=== PATIENT | female | born 1965 | race Caucasian/White ===

== ENCOUNTER 2023-03-07 07:06 | Outpatient (CLI) | payer BC, SELFPAY ==
--- NOTE | 2023-03-07 08:17 | W.ANESCHARGE ---
Anesthesia Charges Start Date/Time Anesthesia Start Date: 03/07/23 Anesthesia Start Time: 07:52 Stop Date/Time Anesthesia Stop Date: 03/07/23 Anesthesia Stop Time: 08:14
--- NOTE | 2023-03-07 08:24 | W.ANESCHARGE ---
Anesthesia Charges Start Date/Time Anesthesia Start Date: 03/07/23 Anesthesia Start Time: 07:52 Stop Date/Time Anesthesia Stop Date: 03/07/23 Anesthesia Stop Time: 08:14
== END 2023-03-07 07:07 | disposition home or self-care (01) ==
LOC: OP CLINIC 07:07
PROVIDERS: PCP Family Medicine; Visit Provider Internal Medicine
DX: Z12.11 Encounter for screening for malignant neoplasm of colon (principal); Z86.010 Personal history of colon polyps
CPT/HCPCS: 45378; 811; 812; J2704

== ENCOUNTER 2023-03-22 08:48 | Outpatient (CLI) | payer BC, SELFPAY | END 2023-03-22 08:49 | disposition home or self-care (01) | LOC: NFLDREF 03-25 09:25 | PROVIDERS: PCP Family Medicine; Referring Provider Family Medicine; Visit Provider Obstetrics & Gynecology | DX: Z00.00 Encounter for general adult medical examination without abnormal findings (principal); R53.83 Other fatigue; Z13.6 Encounter for screening for cardiovascular disorders; Z13.0 Encounter for screening for diseases of the blood and blood-forming organs and certain disorders involving the immune mechanism; Z13.29 Encounter for screening for other suspected endocrine disorder | CPT/HCPCS: 80053; 80061; 82306; 82607; 84443 ==

== ENCOUNTER 2023-04-16 14:54 | Outpatient (CLI) | payer BC, SELFPAY ==
--- NOTE | 2023-04-16 15:00 | CRLHL7_ITS ---
For Patients: As a result of the Century Cures Act, medical imaging exams and procedure reports are released immediately into your electronic medical record. You may view this report before your referring provider. If you have questions, please contact your health care provider. BILATERAL SCREENING MAMMOGRAM WITH COMPUTER-AIDED DETECTION AND TOMOSYNTHESIS TECHNIQUE: CC and MLO views were obtained. These mammographic images have been obtained using full-field digital technique. These mammographic images were interpreted with the benefit of computer-aided detection. Breast Tomosynthesis was used in this interpretation. COMPARISON FILM: 11/08/21, 10/03/20, 09/23/19. FINDINGS: There are scattered areas of fibroglandular density IMPRESSION: There is no radiographic evidence for malignancy. ASSESSMENT: BI-RADS Category 1: Negative RECOMMENDATION: Routine screening mammogram in 1 year. A lay language report of this examination will be provided to the patient. Rainer Matthew M.D. Diagnostic Radiologist [email or web address] KARLA/Dictated by: Rainer Matthew MD @ 04/17/2023 11:49:00 AM (Electronically Signed)
== END 2023-04-16 14:55 | disposition home or self-care (01) ==
LOC: MAMMO 14:54
PROVIDERS: PCP Family Medicine; Visit Provider Obstetrics & Gynecology
DX: Z12.31 Encounter for screening mammogram for malignant neoplasm of breast (principal)
CPT/HCPCS: 77063; 77067

== ENCOUNTER 2023-06-10 14:54 | Outpatient (CLI) | payer BC, SELFPAY | END 2023-06-10 14:55 | disposition home or self-care (01) | LOC: RAD 14:55 | PROVIDERS: PCP Family Medicine; Visit Provider Internal Medicine Cardiovascular Disease | DX: I47.19 Other supraventricular tachycardia (principal); I31.39 Other pericardial effusion (noninflammatory) | CPT/HCPCS: 93306 ==

== ENCOUNTER 2024-01-22 14:13 | Outpatient (CLI) | payer BC, SELFPAY ==
--- OUTSIDE RECORDS SUMMARY | 2024-01-22 14:17 | XMS_ITS | Clinical Summary ---
Author Organization [facility] Address [address] [address] Phone Care Team Providers Care Provider Enrollment Specialist Name Role Phone Unavailable Primary Care Provider Unavailabl e Allergies No known active allergies Medications Medication Sig Dispensed Refills Start Date End Date Status Cyanocobalamin (Vitamin B 12) 100 MCG Lozenge Take by mouth. Active vitamin D, cholecalciferol, 25 mcg (1000 Units) tablet Take 25 mcg by mouth one time a day. 1 unit of Vitamin D equals 0.025 mcg of Vitamin D Active benzonatate (Tessalon) 100 MG capsule Take 1 Capsule by mouth three times a day as needed for Cough. Swallow capsule whole (do not break or chew). 90 Capsule 07/07/2022 Active guaiFENesin - codeine (Robitussin AC) 100-10 MG/5ML syrup Take 5 mL by mouth four times a day as needed for Cough. 150 mL 07/07/2022 Active Social History Tobacco Use Types Packs/Day Years Used Date Smoking Tobacco: Never Smokeless Tobacco: Never Tobacco Cessation:Counseling Given: Not Answered Sex and Gender Information Value Date Recorded Sex Assigned at Not on file Gender Identity Not on file Sexual Orientation Not on file Job Start Date Occupation Industry Not on file Not on file Not on file Obstetrics History Last Filed Vital Signs Vital Sign Reading Time Taken Comments Blood Pressure 123/87 07/07/2022 9:10 AM EQUIP TECH Pulse 73 07/07/2022 9:10 AM EQUIP TECH Temperature 37.1 ??C (98.7 ??F) 07/07/2022 9:10 AM CS T Respiratory Rate 18 07/07/2022 9:10 AM EQUIP TECH Oxygen Saturation 98% 07/07/2022 9:10 AM EQUIP TECH Inhaled Oxygen Concentration - - Weight - - Height - - Body Mass Index - - Plan of Treatment Health Maintenance Due Date Last Done Comments CT Colonography 1963 Cervical Cancer Screening 1963 Cologuard 1963 Colonoscopy 1963 Colorectal Cancer Screening 1963 FIT/FOBT 1963 Last pap w/ HPV Testing 1963 Last pap w/o HPV Testing 1963 MAMMO,SCREEN 1963 Sigmoidoscopy 1963 PERTUSSIS (Standing Order) 1982 TETANUS (Standing Order) 1982 Shingrix (Zoster recombinant ) vaccine (Standing Order) (1 of 2) 2013 RSV Vaccination (60+ yrs) (Abrysvo/Arexvy) (1 - 1-dose 60+ series) 2023 Influenza Vaccine Seasonal (Standing Order) (#1) 2023 HPV Vaccine (Standing Order) Aged Out No longer eligible based on patient's age to complete this topic Hepatitis B Vaccine (Standin g Order) Aged Out No longer eligible b ased on patient's age to complete this topic Pneumococcal/PCV20 Vaccine: Pediatrics (2-5 yrs) and At-Risk Patients (6-64 yrs) (Standing Order) Aged Out No longer eligible b ased on patient's age to complete this topic
--- OUTSIDE RECORDS SUMMARY | 2024-01-22 14:17 | XMS_ITS | Clinical Summary ---
Author Organization [facility] Address [address] [address] Care Team Providers Care Ticket Sales Supervisor Name Role Phone Unavailable Primary Care Provider Unavailabl e Source Comments You are receiving this document as you are listed as the primary care provider,follow-up provider, or the patient has been referred to you for consultation.This is in compliance with the Medicare and[facility] Incentive Program,which states Providers who transition their patient to another setting of careor provider of care or refers their patient to another provider of care shouldprovide summary care record for each transition of care or referral. [employer] Allergies No known active allergies Medications Medication Sig Dispensed Refills Start Date End Date Status unknown medication Indications: PN: 06/17/2008 Active unknown medication Indications: PN: 06/17/2008 Active atovaquone-proguanil (MALARONE) 250-100 MG tabletIndications:En counter for counseling for travel Take 1 tab by mouth daily. Start 2 days before malarial mosquito exposure, daily while there and continue for 7 days after leaving. 20 Tablet 08/08/2022 Active Active Problems Problem Noted Date Diagnosed Date Varicella 06/17/2008 Overview: LW Onset: childhood ; Varicella Zoster Immunizations Name Administration Dates Next Due Chicken Pox - History of Illness 01/31/1973 Flu Vac (3+ yrs) 05/22/2017, 3,05/01/2012,2010 Flu Vac Preserv Free (3+yrs) 05/27/2008 Flublok (RIV4) 04/28/2019 Fluzone Qiv Multidose Vial 0 .25 (6-35 Mos) 04/24/2018,05/09/2017,05/23/2016 [id number] 08/09/2009 Hdcv - Rabies Vaccine 03/08/2014, 014,03/13/2013,2012,03/03/2013,02/27/2013 HepA Adult (19+ yrs) 08/08/2022,06/17/2006 HepB Adult (Engerix-B, 20+ y rs, 3 dose series) 06/17/2006 IG (Immune Globulin) 07/15/1997 IPV (Polio) 06/17/2006 Influenza (Flucelvax), Prese rv Free QIV 04/06/2022 Influenza IIV4 (Quadrivalent ) 0.5mL ([id number]) 03/24/2021,03/23/2020,04/29/2014 Influenza, Unspecified Formulation 05/27/2008 JE (IXIARO) 08/15/2022,08/08/2022 Moderna Bivalent 12+ 04/06/2022 Moderna Monovalent 12+ 11/07/2021,2020,11/02/2020,2020 Td 06/17/2003 Tdap 08/08/2022,05/01/2012 Typhoid (Typhim Vi, IM) 08/08/2022,06/27/2006 Typhoid (Vivotif, Oral) 06/17/2008 Typhoid, Unspecified Formulation 06/17/2008,05/31 Zoster RZV (Shingrix) 08/29/2019,07/10/2019 Social History Tobacco Use Types Packs/Day Years Used Date Smoking Tobacco: Never Assessed Sex and Gender Information Value Date Recorded Sex Assigned at Not on file Gender Identity Not on file Sexual Orientation Not on file Plan of Treatment Health Maintenance Due Date Last Done Comments Cervical Cancer Screening Due 1965 Colon Cancer Screening Plan Due 1963 Hep C Screening (Preventive Services) 1963 Mammogram 1963 HIV Screening (Preventive Services) 1979 Adult Preventive Visit 1981 HepB (2) 07/15/2006 06/17/2006 Cholesterol 02/21/2008 COVID-19 Vaccine ( season) 2023 04/06/2022, 11/07/2021, 05/23/2021, Additional history exists Influenza (Season Ended) 2024 022, 03/24/2021, 03/23/2020, Additional history exists DTaP/Tdap/Td (3 - Tdap) 08/08/2032 08/08/19 23, 05/01/2012, 06/17/2003 IPV (Polio) Aged Out 06/17/2006 No longer eligi ble based on patient's age to complete this topic Zoster/Shingles Completed 08/29/2019, 07/10/2019 HepA Completed 08/08/2022, 06/17/2006 Hib Aged Out No longer eligi ble based on patient's age to complete this topic MCV4 Aged Out No longer eligi ble based on patient's age to complete this topic Pneumococcal Aged Out No longer eligi ble based on patient's age to complete this topic
--- OUTSIDE RECORDS SUMMARY | 2024-01-22 14:17 | XMS_ITS | Data Portability ---
Author Organization [place] [facility] Address [address] [place] [address] [address] [place] [address] Assessment Encounter Date Assessment Date Assessment LastModified by Organization Details LastModified Time 09/19/2017 09/19/2017 I spent a considerable amount of time discussing the diagnoses, treatment options, risks and benefits of various treatment options, prognosis and the need for compliance. I also reviewed patients systemic health history, social and personal history and current medications and the complete documentation of the same is available for review in the patient's electronic health record. Based on the evaluation today, I do consider patient's symptoms to be consistent for a Temporomandibular joint disorder diagnosis. Contributing factors identified and discussed include oral parafunctional habits, postural factors, coping with elevated stress. A panoramic radiograph was obtained in the office today and finding on the radiograph was discussed with the patient. This screening imaging revealed Right-side TMJ adaptive remodeling and Left-side TMJ WNL. Overall, the dento-alveolar tissue appeared WNL. I reviewed some self care strategies with the patient today. This included the use of moist-heat therapy on a regular basis, eating a soft diet and chewing bilaterally simultaneously. the technique in keeping the jaw relaxed at all times with the teeth apart and tongue resting on the roof of the mouth was demonstrated and discussed. Patient was also educated on the significance of compliance to self-care today. I recommended evaluation and treatment with a physical therapist to improve pain-free range of motion and function. Physical therapy strategies of exercises and modalities and the value of those were discussed with the patient. Fabrication of a Mandibular naje-vvhnjxzzri-pgf l appliance to address patient's diagnoses would be considered as a part of the treatment plan. The goals with the use of an intra-oral appliance was discussed with the patient today. Total visit time 45 minutes. I spent 35 minutes on counselling and co-ordination of care. Not available 09/24/2017 22:51:59 10/28/2017 10/28/2017 Symptoms are consistent with TMD diagnosis. Patient is low complexity with 0 personal factors/comorbiditi es affecting the plan of care, low complexity decision making and an evolving clinical presentation. Examination yields 3 affected structures, participation restrictions and/or functional limitations. The patient will benefit from PT to decrease pain and increase function with opening, yawning and chewing. Contributing factors include muscle guarding, oral habits, stress and poor posture. Treatment will include exercises to release muscle tension and increase strength and stability. Modalities to be used may include manual therapy, ultrasound and electrical stimulation. Frequency will be 1x/2 weeks for 6-8 weeks, tapering as able for a total of 3-6 visits over 3 months. Short term goals to be met in 6 weeks include: *Improve patient's awareness of muscle tension and muscle guarding habits to decrease pain. *Improve patient's awareness of proper sleep positioning and ergonomics to decrease joint and muscle strain. *Improve jaw ROM to >40 mm IO and 10 mm lateral excursion without deviation, noise or increased pain due to improved jaw control. *Decrease pain level by % due to improved muscle tension release and joint protection terminal superintendent goals to be met in 3 months include: *Neutral head, neck and jaw posture 80% of the time to decrease neck and jaw strain. *Decrease pain level by 80 % due to improved muscle stabilization and control with prolonged opening and yawning. *[place] with HEP and self care strategies to manage symptoms and discharge PT. *Pain free chewing with moderately hard diet 80% of the time due to improved jaw muscle endurance and control. ekahnert Not available 10/28/2017 18:00:12 11/28/2017 11/28/2017 Doing well with improved painfree ROM and straighter jaw mechanics observed. Patient has been compliant with PT exercises. Progressed exercises to include isometrics at 1 fingertip opening to improve endurance and stabilization. Good deep masseter release following US R masseter and MFR. Progress to dynamic resistance exercises next, ok to continue independently after next visit if still doing well. Progressing toward all goals - review next. Short term goals to be met in 6 weeks include: *Improve patient's awareness of muscle tension and muscle guarding habits to decrease pain. *Improve patient's awareness of proper sleep positioning and ergonomics to decrease joint and muscle strain. *Improve jaw ROM to >40 mm IO and 10 mm lateral excursion without deviation, noise or increased pain due to improved jaw control. *Decrease pain level by % due to improved muscle tension release and joint protection terminal superintendent goals to be met in 3 months include: *Neutral head, neck and jaw posture 80% of the time to decrease neck and jaw strain. *Decrease pain level by 80 % due to improved muscle stabilization and control with prolonged opening and yawning. *[place] with HEP and self care strategies to manage symptoms and discharge PT. *Pain free chewing with moderately hard diet 80% of the time due to improved jaw muscle endurance and control. [email or web address] Not available 11/28/2017 17:49:38 01/06/2018 01/06/2018 Adjusted exercis es to focus on stabilization with movement. Continue with dynamic resistance exercises for 1 month, then taper if still doing well. Patient has met all goals and is ready for discharge to independent management with a home exercise program. Short term goals to be met in 6 weeks include: *Improve patient's awareness of muscle tension and muscle guarding habits to decrease pain. *Improve patient's awareness of proper sleep positioning and ergonomics to decrease joint and muscle strain. *Improve jaw ROM to >40 mm IO and 10 mm lateral excursion without deviation, noise or increased pain due to improved jaw control. *Decrease pain level by % due to improved muscle tension release and joint protection terminal superintendent goals to be met in 3 months include: *Neutral head, neck and jaw posture 80% of the time to decrease neck and jaw strain. *Decrease pain level by 80 % due to improved muscle stabilization and control with prolonged opening and yawning. *[place] with HEP and self care strategies to manage symptoms and discharge PT. *Pain free chewing with moderately hard diet 80% of the time due to improved jaw muscle endurance and control. [email or web address] Not available 01/07/2018 13:13:58 Plan of Treatment Reminders Order Date Submit Date Provider Last Modified By Organization Details Last Modified Time Details Appointments None recorded. Lab None recorded. Referral physical therapist referral 2017 018 MIMI [place], Miah Deshpande [facility], [address], [place], [address], 8 17:00:38 Procedures None recorded. Surgeries None recorded. Imaging None recorded. Medication Orders None recorded. Patient TargetsNo targets recorded. Patient Instructions Encounter Date Encounter Id Patient Instructions Last Modified By Organization Details Last Modified Time 09/19/2017 [id number] Self Care for TMD Not availab le 09/24/2017 22:52:05 10/28/2017 [id number] Plan: Continue with MFR if helpful, add US if needed for muscle tension. Add #6A, check tube ex for control. Progress postural exercises, add cervical stretches eventually to address ear as needed. [email or web address] Not available 10/28/2017 18:00:45 11/28/2017 [id number] Plan: Continue with US/MFR if helpful. Check tube and isometric ex for control. Progress to dynamic resistance ex, review goals and check re. ear pain. Continue independently when able. RTC 1 month. [email or web address] Not available 11/28/2017 17:52:17 01/06/2018 [id number] Plan: RTC if needed, otherwise D/C to independent HEP. [email or web address] Not available 01/07/2018 13:14:10 Reason for Referral Referring Physician: Celestina Carpenter, Pain Management, Encounter Date: 09/19/2017 Results Created Date Observation Date Name Description Value Unit Range Abnormal Flag LastModifiedBy Organization Detail LastModifiedTime 09/19/19 18 XR, ortho panto gram No observ ation record ed. 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 Procedures Surgical History Date Name Laterality Status Provider Name and Address Organization Details Recorded Time 8 84703: Ultrasound (1:1) completed Nay silver [facility] 01/06/2018 11:09:29 8 77914: Therapeutic Exercise completed Nay silver [facility] 01/06/2018 11:09:29 8 86000: Ultrasound (1:1) completed Nay silver [facility] 11/28/2017 17:49:53 8 99527: Therapeutic Exercise completed Nay silver [facility] 11/28/2017 15:34:46 8 30226 PT Eval - Low Complexity completed Nay silver [facility] 10/28/2017 17:55:44 8 83398: Therapeutic Exercise completed Nay silver [facility] 10/28/2017 14:03:11 8 01627: Therapeutic Activities completed Nay silver [facility] 10/28/2017 17:55:55 6 Caesarean Section completed Carly silver [facility] 09/19/2017 15:38:47 [place] Teeth Extraction completed Carly silevr [facility] 09/19/2017 15:43:08 Imaging Results Imaging Date Name Status LastModified by Organization Details LastModified Time 09/19/2017 XR, orthopantogram completed Inform ation not available 10/16/2017 17:01:02 Procedure Notes None recorded. Medical Equipment None Reported. Allergies No known drug allergies Medications Name Sig Start Date Stop Date Status Note LastModified by Organization Details LastModified Time prednisone 10 mg tablet 2017 completed Not Available Not Available Not Available fluticasone propionate 50 mcg/actuation nasal spray,suspens ion 2017 completed Not Available Not Available Not Available Vitals Date Recorded Body height Body mass index (BMI) Body weight Heart rate Systolic blood pressure Diastolic blood pressure Provider Name and Address Organization Details Last Updated DateTime 8 173.99 cm 21 kg/m2 63567.9 3 g 61 /min 114 mm[Hg] 72 mm[Hg] Carly Leigh Ann [facility] 8 15:41:48 Social History Question Answer Notes LastModified by Organizat ion Details LastModified Time Tobacco Smoking Status Never Smoker Carly Beltrán [facility] 09/19/2017 15:42:49 What Is Your Level Of Alcohol Consumption? Occasional Information not available 09/19/2017 Auto Related Injury? No Information not available 09/19/2017 What Is Your Level Of Caffeine Consumption? Moderate Information not available 09/19/2017 Are You Currently Employed? Yes Information not available 09/19/2017 Currently No Information not available 09/19/2017 What Type Of Diet Are You Following? REGULAR Information not available 09/19/2017 Education Post Graduate Information not available 09/19/2017 What Was The Date Of Your Most Recent Tobacco Screening? 10/28/2017 Information not available 02/19/2019 General Stress Level Medium Information not available 09/19/2017 Sex: Unknown Functional Status Question Answer Note LastModified by Organization D etails LastModified Time What is your exercise level? Moderate Information not available 09/19/2017 Mental Status None recorded. Family History Relationship Description Onset Age of this Age Resolved Age Notes Mother Migraine Father Depressive disorder Brother Migraine Brother Depressive disorder Daughter Migraine 14 Daughter Migraine 16 Medical History Condition Response Coronary Artery Disease N Other N Gout N MRSA N Head Trauma/Injury N COPD N Depression N Pneumonia N Obstructive Sleep Apnea N Anxiety Disorder N Autoimmune disease N Muscle, Joint, or Bone Problems N Vision or Eye Problems N Arthritis N Acid Reflux (GERD) N Cancer N Stroke N Rheumatoid Arthritis N Fibromyalgia N Headaches Y Kidney Disease N Post traumatic stress disorder (PTSD) N Migraines N Brain Tumors N Bleeding Disorder N Tuberculosis N AIDS/HIV N Asthma N Substance Abuse N Vertigo N Sleep Disorder N Hepatitis N Neuropathy N Pulmonary Embolism N Glaucoma N Lung Disease N Pacemaker N Back Injury N High Cholesterol N Liver Disease N Organ Transplant N Allergies/Hayfever N Parkinson's Disease N Anemia N Multiple Sclerosis N Heart Attack (DC) N Stomach Ulcers N Diabetes N Seizures/Epilepsy N Dementia N Heart Disease N Hypertension N Osteoporosis N Gynecological HistoryNo gynecological history recorded. Obstetrics History GPAL:G 0 P 0 0 0 0 Immunizations Vaccine Type Date Status Provider Name and Address Organization Details Recorded Time Influenza, split virus, trivalent, preservative 05/22/2017 completed JUNIOR Harden [facility] 09/19/2017 15:38:53 Past Encounters Encounter ID Performer Location Encounter Start Date Encounter Closed Date Diagnosis/Indication Diagnosis SNOMED-CT Code [id number] Ni Devang DDS [place] [address] [place] [id number] 09/19/2017 15:31:34 09/19/2017 16:59:20 Arthralgia of temporomandibular joint 10170343 Articular disc disorder of temporomandibular joint 59586179 Myofascial pain 40629862 9 [id number] Nay Porter [place] [address] [facility],[address] [place] [phone] 10/28/2017 13:47:13 10/28/2017 16:53:11 Myofascial pain 328870904 Arthralgia of temporomandibular joint 98394525 Articular disc disorder of temporomandibular joint 34745555 [id number] Nay Porter [place] [address] [place] [id number] 11/28/2017 15:31:06 11/28/2017 16:58:55 Myofascial pain 801834979 Arthralgia of temporomandibular joint 66230008 Articular disc disorder of temporomandibular joint 48583359 [id number] Nay Porter [place] [id number] [place] [id number] 01/06/2018 10:55:57 01/07/2018 13:37:29 Myofascial pain 165917110 Arthralgia of temporomandibular joint 53450397 Articular disc disorder of temporomandibular joint 02091976 Health Concerns Section Related Observation LastModified by Organization Detai ls LastModified Time None Recorded Concern Status LastModified by Organization Details LastModified Time None Recorded Advance Directives Directive None Recorded Payers Encounter Date Sequence Insurance Name Policy Number Policy Jernigan Covered Member ID Jernigan Member ID Guarantor Name 09/19/2017 1 [employer] [id number] [place] Duong [id number] [place] Duong 10/28/2017 1 [employer] [id number] [place] Du[place] [id number] [place] Duong 11/28/2017 1 [employer] [id number] [place] Duong [id number] [place] Duong 01/06/2018 1 [employer] [id number] [place] [id number] [place] Duong Notes Date Note Type Note Provider Name and Address Organization Details Recorded Time 09/19/2017 text/html HPI Notes: Arya worthington reports jaw pain on the right-side , which startedweeks ago. The pain is located in the pre-auricular region. Patient reports the severity of pain as 0-3 on a scale of 0-10 and describes the quality of the pain asdull ache. The pain is intermittent. Associated symptoms include ear pain, jaw joint noises, bite changes, headache. Contextual factors include repetitive strain. Aggravating factors include closing her mouth / jaw, teeth grinding. Patient has tried opening her mouth really wide to reset her jaw, OTC medication (Motrin), massage to alleviate symptoms, which has been effective. Past treatment includes n/a. JUNIOR Anaya DDS - [facility] 09/24/2017 22:52:47 10/28/2017 text/html HPI Notes: Jaw p ain was in the R PA area initially and limited full closing on the R side. Wide opening would help get it back into place. Feels pain with palpation only. Was unaware of what triggered the pain initially - insidious onset in July. Avoids hard foods. Bite feels more normal, though it was off originially. Panorex shows Right-side TMJ adaptive remodeling and Left-side TMJ WNL. Her dentist and Dr. Siddiqi think that she must clench at night. Leans on her hand. No nail biting, no gum chewing. 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 Rates stress level as medium (2 daughters graduating from college in the spring) - lots going on. Used heat to manage the pain for awhile along with motrin. DId have R ear pain and some plugging initially with the pain. Has a history of L ear clogging for about a year and a half - they find fluid on/off and has been following with an ENT for it. Has a history of migraine BARCLAY - manages with medication, hasn't had one for awhile. Runs and lifts weights for general exercises. Has tennis elbow now that limits tennis. Hobbies include reading, travel. Sleeps all over and mostly feels she's on the L side. Thinks that sleeping on the stomach or sleeping on the L will trigger pain. Sleep is interrupted by their dog, but not pain. No locking, no noise. Has been told that she needs a crown (upcoming in November). Goals include decreased pain, decreased muscle tension, independent fdc management. Personal factors and/or comorbidities affecting the plan of care include none. Functional limitations and participation restrictions include limited wide opening, chewing and yawning. JUNIOR [place] - [facility] 10/28/2017 18:01:04 11/28/2017 text/html HPI Notes: Had crown work done recently - has soreness on the L in the face following the dental work. R side did ok during the procedure. Doing the jaw rotation at least 3-4x/day. Doing self massage of the face and jaw 2-3x/day, doing laterotrusion daily as well, sometimes with the tube and sometimes without. Some incidents of catching clenching - not too bad. More aware overall. JUNIOR [place] - [facility] 11/28/2017 17:52:31 01/06/2018 text/html HPI Notes: Jaw feeling ok - no functional limitation. The exercises feel fine. Feeling ready to continue independently. Has been doing exercises about 2-3x/day. JUNIOR [place] - [facility] 01/07/2018 13:14:23 OBGyn Episode No OBEpisode recorded.
--- NOTE | 2024-01-22 14:30 | CRLHL7_ITS ---
For Patients: As a result of the Century Cures Act, medical imaging exams and procedure reports are released immediately into your electronic medical record. You may view this report before your referring provider. If you have questions, please contact your health care provider. DXA BONE MINERAL DENSITY STUDY Reason for exam: Screening. Current height (in): 68. Weight (lb): 140. Menopause age: 53. Ethnicity: White. 1. Have you had a previous hip or vertebral fracture? No. 2. Have you had any fractures during your adult life which did not result from significant trauma (e.g., auto accident)? Yes. 3. Did either of your parents have a hip fracture? No. 4. Do you smoke? No. 5. Have you ever taken Glucocorticoids? No. 6. Do you have rheumatoid arthritis? No. 7. Do you have secondary osteoporosis? No. 8. Do you drink 3 or more alcoholic drinks per day? No. 9. Are you being treated for osteoporosis? No. 10. Have you ever taken any of the following medications: Actonel, Evista, Fosamax, Miacalcin, Reclast, Boniva, Forteo, HRT (i.e., estrogen/hormone therapy), Protelos, Prolia, Vitamin D, Calcium, other ??? please specify. ANSWER: Yes, vitamin D and calcium. 11. Do you have any of the following medical conditions: Anorexia or bulimia, asthma or emphysema, end stage renal disease, hyperparathyroidism, any seizure disorders, cancer, inflammatory bowel diseases, hysterectomy, other ??? please specify. ANSWER: No. 12. What was your maximum height (inches)? 68.5. 13. Do you perform weight bearing exercise regularly? Yes. 14. Do you regularly consume dairy products? Yes. 15. Do you drink caffeinated beverages? Yes. 16. At what age did your period start? 11. 17. Are you premenopausal? No. 18. How many full-term pregnancies have you had? 2. 19. Have you ever missed your period for more than 6 months in a row (not including or menopause)? Yes. TECHNIQUE: Bone mineral density study was performed using the [employer]. FINDINGS: The results of the study expressed as bone mineral density (BMD) are as follows: Lumbar spine L1 to L4: BMD: 1.071 g/cm2. T-score: 0.2. Z-score: 1.7 Neck Left: BMD: 0.674 g/cm2. T-score: -1.6. Z-score: -0.3 Right: BMD: 0.691 g/cm2. T-score: -1.4. Z-score: -0.1 Total Left: BMD: 0.811 g/cm2. T-score: -1.1. Z-score: -0.1 Right: BMD: 0.791 g/cm2. T-score: -1.2. Z-score: -0.2 IMPRESSION: Osteopenia. FRAX 10-year Fracture Risk Major Osteoporotic Fracture: 13% Hip Fracture: 1.3% Reported Risk Factors: US () Neck BMD=0.674, BMI=21.3, previous fracture. JULIA NIETO M.D. Transcribed: 2:15 p.m. [email or web address] jj/Dictated by: Julia Nieto MD @ 01/24/2024 12:26:00 PM (Electronically Signed)
== END 2024-01-22 14:14 | disposition home or self-care (01) ==
LOC: RAD 14:14
PROVIDERS: PCP Obstetrics & Gynecology; Visit Provider Obstetrics & Gynecology
DX: Z13.820 Encounter for screening for osteoporosis (principal); M85.89 Other specified disorders of bone density and structure, multiple sites; Z87.81 Personal history of (healed) traumatic fracture
CPT/HCPCS: 77080

== ENCOUNTER 2024-02-12 08:09 | Outpatient (CLI) | payer BC, SELFPAY ==
--- OUTSIDE RECORDS SUMMARY | 2024-02-14 04:14 | XMS_ITS | Clinical Summary ---
Author Organization [facility] Address [address] [address] Care Team Providers Care Crop Duster Name Role Phone Unavailable Primary Care Provider Unavailabl e Source Comments You are receiving this document as you are listed as the primary care provider,follow-up provider, or the patient has been referred to you for consultation.This is in compliance with the Medicare and[facility] EHR Incentive Program,which states Providers who transition their patient to another setting of careor provider of care or refers their patient to another provider of care shouldprovide summary care record for each transition of care or referral. [facility] Allergies No known active allergies Medications Medication [...] Multidose Vial 0 .25 (6-35 Mos) 04/24/2018,05/09/2017,05/23/2016 [id number] 08/09/2009 Hdcv - Rabies Vaccine 03/08/2014, 014,03/13/2013,2012,03/03/2013,02/27/2013 HepA Adult (19+ yrs) 08/08/2022,06/17/2006 HepB Adult (Engerix-B, 20+ y rs, 3 dose series) 06/17/2006 IG (Immune Globulin) 07/15/1997 IPV (Polio) 06/17/2006 Influenza (Flucelvax), Prese rv Free QIV 04/06/2022 Influenza IIV4 (Quadrivalent ) 0.5mL (38749) 03/24/2021,03/23/2020,04/29/2014 Influenza, Unspecified Formulation 05/27/2008 JE (IXIARO) [...] 04/06/2022, 11/07/2021, 05/23/2021, Additional history exists Influenza (#1) 2024 04/06/2022, 02/27, 03/23/2020, Additional history exists DTaP/Tdap/Td (3 - Tdap) 08/08/2032 08/08/19, 05/01/2012, 06/17/2003 IPV (Polio) Aged Out 06/17/2006 [...]
--- OUTSIDE RECORDS SUMMARY | 2024-02-14 04:14 | XMS_ITS | Clinical Summary ---
Author Organization [facility] Address [address] [address] Phone Care Team Providers Care Chuck Wagon Cook Name Role Phone Unavailable Primary Care Provider [...] Comments Blood Pressure 123/87 07/07/2022 9:10 AM DIRECTOR WEB Pulse 73 07/07/2022 9:10 AM DIRECTOR WEB Temperature 37.1 ??C (98.7 ??F) 07/07/2022 9:10 AM CS T Respiratory Rate 18 07/07/2022 9:10 AM DIRECTOR WEB Oxygen Saturation 98% 07/07/2022 9:10 AM DIRECTOR WEB Inhaled Oxygen Concentration - - Weight - [...] series) 2023 Influenza Vaccine Seasonal (Standing Order) (Season Ended) 2024 HPV Vaccine (Standing Order) Aged Out No [...]
--- OUTSIDE RECORDS SUMMARY | 2024-02-14 04:15 | XMS_ITS | Data Portability ---
Author Organization [place] [facility] [place] [facility] Address [address] [place] [address] [address] [place] [address] Assessment Encounter Date Assessment Date Assessment LastModified [...] with the patient. 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 *Decrease pain level by 80 % due to improved muscle stabilization and control with prolonged opening and yawning. 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 *Decrease pain level by 80 % due to improved muscle stabilization and control with prolonged opening and yawning. 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 *Decrease pain level by 80 % due to improved muscle stabilization and control with prolonged opening and yawning. *[place] with HEP and self care strategies to [...] Referral physical therapist referral 2017 018 [facility] [place], Miah Deshpande [facility], [address], [place], [address], 8 17:00:38 Procedures None recorded. Surgeries None recorded. Imaging None recorded. Medication Orders None recorded. Patient TargetsNo targets recorded. Patient Instructions Encounter Date Encounter Id Patient Instructions Last Modified By Organization Details Last Modified Time 09/19/2017 [id number] Self Care for TMD Not availab le 09/24/2017 22:52:05 10/28/2017 [id number] Plan: Continue with MFR if helpful, add US if needed for muscle tension. Add #6A, check tube ex for control. Progress postural exercises, add cervical stretches eventually to address ear as needed. [email or web address] Not available 10/28/2017 18:00:45 11/28/2017 [id number] Plan: Continue with US/MFR if helpful. Check tube and isometric ex for control. Progress to dynamic resistance ex, review goals and check re. ear pain. Continue independently when able. RTC 1 month. ekahnert Not available 11/28/2017 17:52:17 01/06/2018 [id number] Plan: RTC if needed, otherwise D/C to independent HEP. ekahnert Not available 01/07/2018 13:14:10 Reason for Referral Referring Physician: Celestina Carpenter, Pain Management, Encounter Date: 09/19/2017 Results Created Date Observation Date Name Description Value Unit Range Abnormal Flag LastModifiedBy Organization Detail LastModifiedTime 09/19/19 18 XR, ortho panto gram No observ ation record ed. Not Available 10/16/2017 17:01:02 Result Notes None recorded. 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 Procedures Surgical History Date Name Laterality Status Provider Name and Address Organization Details Recorded Time 8 85439: Ultrasound (1:1) completed Nay silver [facility] 01/06/2018 11:09:29 8 95800: Therapeutic Exercise completed Nay silver [facility] 01/06/2018 11:09:29 8 78741: Ultrasound (1:1) completed Nay silver [facility] 11/28/2017 17:49:53 8 74119: Therapeutic Exercise completed Nay silver [facility] 11/28/2017 15:34:46 8 62410 PT Eval - Low Complexity completed Nay silver [facility] 10/28/2017 17:55:44 8 84268: Therapeutic Exercise completed Nay silver [facility] 10/28/2017 14:03:11 8 63221: Therapeutic Activities completed Nay silver [facility] 10/28/2017 17:55:55 6 Caesarean Section completed Carly Beltrán [facility] 09/19/2017 15:38:47 [place] Teeth Extraction completed Carly Beltrán [facility] 09/19/2017 [...] Updated DateTime 8 173.99 cm 21 kg/m2 44360.9 3 g 61 /min 114 mm[Hg] 72 mm[Hg] Carly Corderoer [facility] 8 15:41:48 Social History Question Answer Notes LastModified by Organizat ion Details LastModified Time Tobacco Smoking Status Never Smoker Carly Leigh Ann [facility] [...] Gout N MRSA N Head Trauma/Injury N Lung Disease N Glaucoma N Depression N COPD N Pneumonia N Pacemaker N Obstructive Sleep Apnea N Anxiety Disorder N Muscle, Joint, or Bone Problems N Autoimmune disease N Vision or Eye Problems N Arthritis N Acid Reflux (GERD) N Cancer N Stroke N Back Injury N High Cholesterol N Liver Disease N Organ Transplant N Rheumatoid Arthritis N Headaches Y Fibromyalgia N Kidney Disease N Allergies/Hayfever N Post traumatic stress disorder (PTSD) N Parkinson's Disease N Migraines N Brain Tumors N Anemia N Multiple Sclerosis N Heart Attack (OR) N Stomach Ulcers N Diabetes N Bleeding Disorder N Seizures/Epilepsy N Tuberculosis N AIDS/HIV N Dementia N Asthma N Substance Abuse N Vertigo N Sleep Disorder N Hepatitis N Neuropathy N Heart Disease N Pulmonary Embolism N Hypertension N Osteoporosis N Gynecological HistoryNo gynecological history recorded. Obstetrics History GPAL:G 0 P 0 0 0 0 Immunizations Vaccine Type Date Status Provider Name and Address Organization Details Recorded Time Influenza, split virus, trivalent, preservative 05/22/2017 completed JUNIOR Harden [facility] 09/19/2017 15:38:53 Past Encounters Encounter ID Performer Location Encounter Start Date Encounter Closed Date Diagnosis/Indication Diagnosis SNOMED-CT Code [id number] Ni Devang [place] [address] [place] [phone] 09/19/2017 15:31:34 09/19/2017 16:59:20 Arthralgia of temporomandibular joint 65739585 Articular disc disorder of temporomandibular joint 99259474 Myofascial pain 73576799 9 [id number] Nay Porter [place] [address] [place] [phone] 10/28/2017 13:47:13 10/28/2017 16:53:11 Myofascial pain 270310117 Arthralgia of temporomandibular joint 29520021 Articular disc disorder of temporomandibular joint 19620323 [id number] Nay Porter [place] [address] [address] 11/28/2017 15:31:06 11/28/2017 16:58:55 Myofascial pain 797499620 Arthralgia of temporomandibular joint 25047484 Articular disc disorder of temporomandibular joint 14671990 [id number] Nay Porter [place] [id number] [place] [phone] 01/06/2018 10:55:57 01/07/2018 13:37:29 Myofascial pain 436659186 Arthralgia of temporomandibular joint 51723603 Articular disc disorder of temporomandibular joint 10096388 Health Concerns Section Related Observation LastModified by Organization Detai ls LastModified Time None Recorded Concern Status LastModified by Organization Details LastModified Time None Recorded Advance Directives Directive None Recorded Payers Encounter Date Sequence Insurance Name Policy Number Policy Jernigan Covered Member ID Jernigan Member ID Guarantor Name 09/19/2017 1 [facility] [id number] [place] Duong [id number] [place] 10/28/2017 1 [facility] [id number] [place] Duong [id number] [place] Du[place] 11/28/2017 1 [facility] [id number] [place] Duong [id number] [place] 01/06/2018 1 [facility] [id number] [place] Duong [id number] [place] Duong Notes Date Note Type Note Provider Name and Address Organization Details Recorded Time 09/19/2017 text/html HPI Notes: Arya nt reports jaw pain on the right-side , [...] treatment includes n/a. 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 Personal factors and/or comorbidities affecting the plan of care include none. Functional limitations and participation restrictions include limited wide opening, chewing and yawning. JUNIOR [place] - [facility] 10/28/2017 18:01:04 [...] bad. More aware overall. JUNIOR [place] - [facility] 11/28/2017 17:52:31 01/06/2018 text/html HPI Notes: Jaw feeling ok - no functional limitation. The exercises feel fine. Feeling ready to continue independently. Has been doing exercises about 2-3x/day. JUNIOR [place] - [facility] 01/07/2018 13:14:23 OBGyn Episode No OBEpisode recorded.
== END 2024-02-12 08:10 | disposition home or self-care (01) ==
LOC: NFLDREF 02-14 04:13
PROVIDERS: PCP Obstetrics & Gynecology; Referring Provider Obstetrics & Gynecology; Visit Provider Obstetrics & Gynecology
DX: Z00.00 Encounter for general adult medical examination without abnormal findings (principal); Z13.1 Encounter for screening for diabetes mellitus; Z13.0 Encounter for screening for diseases of the blood and blood-forming organs and certain disorders involving the immune mechanism; Z13.228 Encounter for screening for other metabolic disorders
CPT/HCPCS: 80053; 80061

== ENCOUNTER 2024-04-17 14:46 | Outpatient (CLI) | payer BC, SELFPAY ==
--- NOTE | 2024-04-17 14:40 | CRLHL7_ITS ---
For Patients: As a result of the Century Cures Act, medical imaging exams and procedure reports are released immediately into your electronic medical record. You may view this report before your referring provider. If you have questions, please contact your health care provider. BILATERAL SCREENING MAMMOGRAM WITH COMPUTER-AIDED DETECTION AND TOMOSYNTHESIS TECHNIQUE: CC and MLO views were obtained. These mammographic images have been obtained using full-field digital technique. These mammographic images were interpreted with the benefit of computer-aided detection. Breast Tomosynthesis was used in this interpretation. COMPARISON FILM: 04/16/23, 11/08/21, 10/03/20. FINDINGS: The breasts are heterogeneously dense, which may obscure small masses IMPRESSION: There is no radiographic evidence for malignancy. ASSESSMENT: BI-RADS Category 1: Negative RECOMMENDATION: Routine screening mammogram in 1 year. A lay language report of this examination will be provided to the patient. Rainer Matthew M.D. Diagnostic Radiologist [email or web address] KARLA/Dictated by: Rainer Matthew MD @ 04/28/2024 11:07:00 AM (Electronically Signed)
--- OUTSIDE RECORDS SUMMARY | 2024-04-17 14:48 | XMS_ITS | Clinical Summary ---
Author Organization [facility] Address [address] [address] Care Team Providers Care Fly Maker Name Role Phone Unavailable Primary Care Provider Unavailabl e Source Comments You are receiving this document as you are listed as the primary care provider,follow-up provider, or the patient has been referred to you for consultation.This is in compliance with the Medicare and[facility] EHR Incentive Program,which states Providers who transition their patient to another setting of careor provider of care or refers their patient to another provider of care shouldprovide summary care record for each transition of care or referral. [email or web address] Allergies No known active allergies Medications Medication [...] Problem Noted Date Diagnosed Date Varicella 06/17/2008 Overview (03/20/2017): LW Onset: childhood ; Varicella Zoster Immunizations Name Administration Dates Next Due Chicken Pox - History of Illness 01/31/1973 Flu Vac (3+ yrs) 05/22/2017, 3,05/01/2012,2010 Flu Vac Preserv Free (3+yrs) 05/27/2008 Flublok (RIV4) 04/28/2019 Fluzone Qiv Multidose Vial 0 .25 (6-35 Mos) 04/24/2018,05/09/2017,05/23/2016 [id number] 08/09/2009 Hdcv - Rabies Vaccine 03/08/2014, 014,03/13/2013,2012,03/03/2013,02/27/2013 HepA Adult (19+ yrs) 08/08/2022,06/17/2006 HepB Adult (Engerix-B, 20+ y rs, 3 dose series) 06/17/2006 IG (Immune Globulin) 07/15/1997 IPV (Polio) 06/17/2006 Influenza (Flucelvax), Prese rv Free QIV 04/06/2022 Influenza IIV4 (Quadrivalent ) 0.5mL (56833) 03/24/2021,03/23/2020,04/29/2014 Influenza, Unspecified Formulation 05/27/2008 JE (IXIARO) [...] 06/17/2006 Cholesterol 02/21/2008 COVID-19 Vaccine ( season) 2024 04/06/2022, 11/07/2021, 05/23/2021, Additional history exists Influenza (#1) 2024 04/06/2022, 08/01/2021, 03/23/2020, Additional history exists DTaP/Tdap/Td (3 - Tdap) 08/08/2032 08/08/19 23, 05/01/2012, 06/17/2003 RSV (1 - 1-dose 75+ series) 2038 IPV (Polio) Aged Out 06/17/2006 No longer [...]
--- OUTSIDE RECORDS SUMMARY | 2024-04-17 14:48 | XMS_ITS | Clinical Summary ---
Author Organization [facility] Address [address] [address] Phone Care Team Providers Care Display Designer Name Role Phone Unavailable Primary Care Provider [...] Comments Blood Pressure 123/87 07/07/2022 9:10 AM AUTO GARAGE MECHANIC Pulse 73 07/07/2022 9:10 AM AUTO GARAGE MECHANIC Temperature 37.1 ??C (98.7 ??F) 07/07/2022 9:10 AM CS T Respiratory Rate 18 07/07/2022 9:10 AM AUTO GARAGE MECHANIC Oxygen Saturation 98% 07/07/2022 9:10 AM AUTO GARAGE MECHANIC Inhaled Oxygen Concentration - - Weight - [...] 2023 Influenza Vaccine Seasonal (Standing Order) (#1) 2024 HPV Vaccine (Standing Order) Aged Out [...]
--- OUTSIDE RECORDS SUMMARY | 2024-04-17 14:48 | XMS_ITS | Data Portability ---
Author Organization [place] [facility] [place] [facility] Address [address] [place] [address] [address] [place] [address] Assessment Encounter Date Assessment Date Assessment LastModified [...] with the patient. Fabrication of a Mandibular zgjq-pbggajojap-lie l appliance to address patient's diagnoses would [...] improved muscle tension release and joint protection longterm goals to be met in 3 months include: *Neutral head, neck and jaw posture 80% of the time to decrease neck and jaw strain. *Decrease pain level by 80 % due to improved muscle stabilization and control with prolonged opening and yawning. *[place] with HEP and self care strategies to [...] improved muscle tension release and joint protection longterm goals to be met in 3 months include: *Neutral head, neck and jaw posture 80% of the time to decrease neck and jaw strain. *Decrease pain level by 80 % due to improved muscle stabilization and control with prolonged opening and yawning. 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 *Decrease pain level by 80 % due to improved muscle stabilization and control with prolonged opening and yawning. *[place] with HEP and self care strategies to [...] Referral physical therapist referral 2017 018 M[place], Miah Deshpande [facility], [address], [place], [address], 8 17:00:38 Procedures None recorded. Surgeries None recorded. Imaging None recorded. Medication Orders None recorded. Patient TargetsNo targets recorded. Patient Instructions Encounter Date Encounter Id Patient Instructions Last Modified By Organization Details Last Modified Time 09/19/2017 [id number] Self Care for TMD Not availab le 09/24/2017 22:52:05 10/28/2017 [id number] Plan: Continue with MFR if helpful, add US if needed for muscle tension. Add #6A, check tube ex for control. Progress postural exercises, add cervical stretches eventually to address ear as needed. [email or web address] Not available 10/28/2017 18:00:45 11/28/2017 [id number] Plan: Continue with US/MFR if helpful. Check tube and isometric ex for control. Progress to dynamic resistance ex, review goals and check re. ear pain. Continue independently when able. RTC 1 month. ekahnert Not available 11/28/2017 17:52:17 01/06/2018 [id number] Plan: RTC if needed, otherwise D/C to independent HEP. [email or web address] Not available 01/07/2018 13:14:10 Reason for Referral Referring Physician: Celestina Carpenter, Pain Management, Encounter Date: 09/19/2017 Results Created Date Observation Date Name Description Value Unit Range Abnormal Flag Note LastModifiedBy Organization Detail LastModifiedTime 09/19/19 18 XR, ortho panto gram No observ ation record ed. Not Available 2017 17:01:02 Result Notes Documentation Provider Name and Address Organization Details Recorded Time Xr, Orthopantogram : [facility] 10/16/2017 17:01:02 Problems Name Problem SNOMED Code Status Onset Date Resolution Date Notes Provider Name and Address Organization Details Recorded Time Arthralgia of temporomandibu lar joint 47735477 Active 2017 [facility] JUNIOR Burnett [facility] 8 16:06:51 Articular disc disorder of temporomandibu lar joint 93209460 Active 2017 Ni DevangJUNIOR dsouza DDS [facility] 8 16:06:56 Myofascial pain 683958300 Active 2017 JUNIOR Anaya DDS [facility] 8 16:07:32 Problem Notes None recorded. Procedures Surgical History Date Name Laterality Status Provider Name and Address Organization Details Recorded Time 8 17605: Ultrasound (1:1) completed Nay Porter [facility] 01/06/2018 11:09:29 8 15764: Therapeutic Exercise completed Nay Porter [facility] 01/06/2018 11:09:29 8 75694: Ultrasound (1:1) completed Nay Porter [facility] 11/28/2017 17:49:53 8 73771: Therapeutic Exercise completed Nay Porter [facility] 11/28/2017 15:34:46 8 76262 PT Eval - Low Complexity completed Nay Porter [facility] 10/28/2017 17:55:44 8 51571: Therapeutic Exercise completed Nay Porter [facility] 10/28/2017 14:03:11 8 43057: Therapeutic Activities completed Nay Porter [facility] 10/28/2017 17:55:55 6 Caesarean Section completed Carly Beltrán [facility] 09/19/2017 15:38:47 [place] Teeth Extraction completed Carly Beltrán [facility] 09/19/2017 [...] Updated DateTime 8 173.99 cm 21 kg/m2 18731.9 3 g 61 /min 114 mm[Hg] 72 mm[Hg] Carly Beltrán [facility] 8 15:41:48 Social History Question Answer Notes LastModified by Organizat [place] Details LastModified Time Tobacco Smoking Status Never Smoker Carly silver [facility] 09/19/2017 15:42:49 [...] Age of this Age Resolved Age Notes LastModified by Organization Details LastModified Time Mother Migraine [email or web address] Not availabl e 09/19/2017 15:38:12 Father Depressive disorder jstreeter Not available 2017 15:38:12 Brother Migraine jstreeter Not availab le 09/19/2017 15:38:12 Brother Depressive disorder jstreeter Not available 2017 15:38:12 Daughter Migraine 14 jstreeter Not availa ble 09/19/2017 15:38:12 Daughter Migraine 16 jstreeter Not availa ble 09/19/2017 15:38:12 Medical History Condition Response Coronary Artery Disease N Gout N Other N MRSA N Head Trauma/Injury N Glaucoma N Lung Disease N Depression N COPD N Pneumonia N Pacemaker N Obstructive Sleep Apnea N Anxiety Disorder N Muscle, Joint, or Bone Problems N Autoimmune disease N Vision or Eye Problems N Arthritis N Acid Reflux (GERD) N Cancer N Stroke N Back Injury N High Cholesterol N Liver Disease N Organ Transplant N Rheumatoid Arthritis N Fibromyalgia N Headaches Y Kidney Disease N Allergies/Hayfever N Parkinson's Disease N Post traumatic stress disorder (PTSD) N Migraines N Brain Tumors N Anemia N Multiple Sclerosis N Heart Attack (PA) N Stomach Ulcers N Diabetes N Bleeding Disorder N Seizures/Epilepsy N Tuberculosis N AIDS/HIV N Dementia N Asthma N Substance Abuse N Vertigo N Sleep Disorder N Hepatitis N Heart Disease N Neuropathy N Pulmonary Embolism N Hypertension N Osteoporosis N Gynecological HistoryNo gynecological history recorded. Obstetrics History GPAL:G 0 P 0 0 0 0 Immunizations Vaccine Type Date Status Provider Name and Address Organization Details Recorded Time Influenza, split virus, trivalent, preservative 05/22/2017 completed JUNIOR [place] [facility] 09/19/2017 15:38:53 Past Encounters Encounter ID Performer Location Encounter Start Date Encounter Closed Date Diagnosis/Indication Diagnosis SNOMED-CT Code Diagnosis ICD10 Code [id number] [facility] DDS Kate Te[address]eda[address] [place] [id number] 09/19/2017 15:31:34 09/19/2017 16:59:20 Arthralgia of temporomandibular joint 12870599 M26.621 Articular disc disorder of temporomandibular joint 15732320 M26.631 Myofascial pain 41689632 9 M79.1 [id number] Nay [place] [address] [place] [id number] 10/28/2017 13:47:13 10/28/2017 16:53:11 Myofascial pain 971779292 M79.1 Arthralgia of temporomandibular joint 55764509 M26.629 Articular disc disorder of temporomandibular joint 34334407 M26.639 [id number] Nay Porter Arsl[address]varjesus [address] [place] [id number] 11/28/2017 15:31:06 11/28/2017 16:58:55 Myofascial pain 686120777 M79.1 Arthralgia of temporomandibular joint 49219401 M26.629 Articular disc disorder of temporomandibular joint 09066645 M26.639 [id number] Nay Porter Rak[address]jesus [address] [place] [id number] 01/06/2018 10:55:57 01/07/2018 13:37:29 Myofascial pain 601058636 M79.1 Arthralgia of temporomandibular joint 39040334 M26.629 Articular disc disorder of temporomandibular joint 67981437 M26.639 Health Concerns Section Related Observation LastModified by Organization Detai ls LastModified Time None Recorded Concern Status LastModified by Organization Details LastModified Time None Recorded Advance Directives Directive None Recorded Payers Encounter Date Sequence Insurance Name Policy Number Policy Jernigan Covered Member ID Jernigan Member ID Guarantor Name 09/19/2017 1 JOSE CARLOS-JUNIOR [id number] [place] [employer] [id number] [place] [employer] 10/28/2017 1 JOSE [place] [id number] [place] [id number] [place] [employer] 11/28/2017 1 JOSE [place] [id number] [place] [id number] [place] [employer] 01/06/2018 1 JOSE [id number] [place] [id number] [place] Notes Date Note Type Note Provider Name [...] treatment includes n/a. 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 Personal factors and/or comorbidities affecting the plan of care include none. Functional limitations and participation restrictions include limited wide opening, chewing and yawning. JUNIOR [place] [facility] 10/28/2017 18:01:04 [...] bad. More aware overall. JUNIOR [place] [facility] 11/28/2017 17:52:31 01/06/2018 text/html HPI Notes: Jaw feeling ok - no functional limitation. The exercises feel fine. Feeling ready to continue independently. Has been doing exercises about 2-3x/day. JUNIOR [place] [facility] 01/07/2018 13:14:23 OBGyn Episode No OBEpisode recorded.
== END 2024-04-17 14:47 | disposition home or self-care (01) ==
LOC: MAMMO 14:46
PROVIDERS: Visit Provider Obstetrics & Gynecology
DX: Z12.31 Encounter for screening mammogram for malignant neoplasm of breast (principal); R92.333 Mammographic heterogeneous density, bilateral breasts
CPT/HCPCS: 77063; 77067

== ENCOUNTER 2025-04-27 17:11 | Outpatient (CLI) | payer BC, SELFPAY ==
--- NOTE | 2025-04-27 17:20 | CRLHL7_ITS ---
For Patients: As a result of the Century Cures Act, medical imaging exams and procedure reports are released immediately into your electronic medical record. You may view this report before your referring provider. If you have questions, please contact your health care provider. INDICATION: BILATERAL SCREENING MAMMOGRAM, ASYMPTOMATIC 60 Y/O FEMALE COMPARISON: 04/17/2024, 04/16/2023, 11/08/2021 TECHNIQUE: Digital mammogram in CC and MLO projections including computer-aided detection (CAD) and tomosynthesis. BREAST COMPOSITION: There are scattered areas of fibroglandular density. FINDINGS: No suspicious findings. ASSESSMENT: BI-RADS 1 Negative RECOMMENDATION: Annual screening mammogram. A lay language report of this examination will be provided to the patient. Dictated by: Rainer Mathtew MD @ 04/28/2025 09:56:14 (Electronically Signed)
== END 2025-04-27 17:12 | disposition home or self-care (01) ==
LOC: MAMMO 17:12
PROVIDERS: Visit Provider Obstetrics & Gynecology
DX: Z12.31 Encounter for screening mammogram for malignant neoplasm of breast (principal)
CPT/HCPCS: 77063; 77067

== ENCOUNTER 2025-06-15 07:55 | Outpatient (CLI) | payer BC, SELFPAY | END 2025-06-15 07:56 | disposition home or self-care (01) | LOC: NFLDREF 06-19 16:24 | PROVIDERS: Visit Provider Obstetrics & Gynecology | DX: Z00.00 Encounter for general adult medical examination without abnormal findings (principal); R39.15 Urgency of urination | CPT/HCPCS: 80053; 82306; 84443 ==